=== PATIENT | female | born 1950 ===

== ENCOUNTER 2017-02-08 06:55 | Day surgery (SDC) | payer MEDICARE, OTHER ==
[2017-02-08 07:17] VITALS: BMI 25.4
[2017-02-08] MEDS ORDERED: Lactated Ringer's 500 ML IV ONE (09:38)
[2017-02-08] MEDS ORDERED: Propofol 10 mg/ml Inj (20 ML) ONE (09:42)
--- NOTE | 2017-02-08 09:50 | CP.SDSHP ---
Same Day Surgery H & P - History Proposed Procedure: egd Pre-Op Diagnosis: heartburn. epigastric pain in spite of PPI - Previous Medical/Surgical History Cardiac: Other (hypercholesterolemia) Endocrine/Metabolic: Thyroid Disease Misc: Other (Peptic ulcer disease, GERD) Previous Surgical History: T and A. Appendectomy. Cholecystecomy. Hernia repair - Allergies Allergies: Allergies No Known Allergies Allergy (Verified 04/13/16 07:19) - Physical Exam Vital Signs: Vital Signs 02/08/17 07:17 Temperature 98.2 F Pulse Rate 74 Respiratory 19 Rate Blood Pressure 115/72 O2 Sat by Pulse 97 Oximetry Mental Status: Alert & Oriented x3 Neuro: WNL Heart: WNL Lungs: WNL GI: WNL - Impression Impression: heartburn. epigastric pain refractory to Rx Pt. Evaluated Today:Candidate for Anesthesia & Procedure: Yes - Date & Time Date: 02/08/17 Time: 09:50 Short Stay Discharge - Short Stay Discharge Admitting Diagnosis/Reason for Visit: HEARTBURN,EPIGASTRIC PAIN Disposition: HOME/ ROUTINE
[2017-02-08 09:54] VITALS: O2SAT 100
[2017-02-08] MEDS ORDERED: Lidocaine Hydrochloride 10 ML INJ ONE (09:59)
[2017-02-08 11:01] VITALS: TEMP 98
[2017-02-08 11:12] VITALS: BP 105/58; PULSE 65; RESP 16
== END 2017-02-08 11:18 | disposition home or self-care (01) ==
LOC: C.ENDO 06:55
PROVIDERS: ATTEND Internal Medicine Gastroenterology
DX: R12 Heartburn (principal); K29.70 Gastritis, unspecified, without bleeding; K20.9 Esophagitis, unspecified
CPT/HCPCS: 43239; 88305; 88312; 88342; J2704; J3010; J7120

== ENCOUNTER 2018-04-05 06:17 | Day surgery (SDC) | payer MEDICARE ==
--- NOTE | 2018-04-05 07:23 | CP.SDSHP ---
Same Day Surgery H & P - History Proposed Procedure: colonoscopy Pre-Op Diagnosis: h/o colon polyps/adenomas - Previous Medical/Surgical History Cardiac: Hypertension Endocrine/Metabolic: Thyroid Disease, Obesity Misc: Other (gerd, gastritis, colonic polyps ) Previous Surgical History: Tummy tuck. Cholecystectomy'. umbilical hernia repair. breast implants. appendix - Allergies Allergies: Allergies No Known Allergies Allergy (Verified 04/13/16 07:19) - Physical Exam Vital Signs: Vital Signs 04/05/18 06:42 Temperature 97.1 F L Pulse Rate 79 Respiratory 19 Rate Blood Pressure 102/60 O2 Sat by Pulse 99 Oximetry Mental Status: Alert & Oriented x3 Neuro: WNL Heart: WNL Lungs: WNL GI: WNL - Impression Impression: h/o colonic polyps Pt. Evaluated Today:Candidate for Anesthesia & Procedure: Yes - Date & Time Date: 04/05/18 Time: 07:23 Short Stay Discharge - Short Stay Discharge Admitting Diagnosis/Reason for Visit: P/H COLONIC POLYPS / GERD / ACUTE GASTRITIS Disposition: HOME/ ROUTINE
[2018-04-05] MEDS ORDERED: Propofol 10 mg/ml Inj (20 ML) ONE (07:33)
[2018-04-05 08:11] VITALS: TEMP 96.9; O2SAT 100
[2018-04-05 08:28] VITALS: PULSE 65
[2018-04-05 08:42] VITALS: BP 101/59; RESP 14
[2018-04-05] MEDS ORDERED: Lactated Ringer's 500 ML IV SCH (09:00)
== END 2018-04-05 08:58 | disposition home or self-care (01) ==
LOC: C.ENDO 06:17
PROVIDERS: ATTEND Internal Medicine Gastroenterology
DX: K64.8 Other hemorrhoids (principal)
CPT/HCPCS: 45378; J2704; J3010

== ENCOUNTER 2019-01-30 09:17 | Outpatient (CLI) | payer MEDICARE | END 2019-01-30 09:18 | disposition home or self-care (01) | LOC: C.MAMMO 09:17 | DX: Z12.31 Encounter for screening mammogram for malignant neoplasm of breast (principal) ==